=== PATIENT | female | born 1935 | race Caucasian/White ===

== ENCOUNTER → 2017-05-30 | Day surgery (SDC) | payer MEDICARE ==
[~2017-05-30] VITALS: Ht 160 cm; Wt 58.2 kg
[~2017-05-30] MED LIST: ACETAMINOPHEN 325 MG TAB PO PRN; ANAS1TAB PO; ASPE10GE TOPICAL; CALC1TAB87 PO; CHLORHEXIDINE GLUCONATE 2 % 1 PACK (2 CLOTHS) TOPICAL PRN; INSULIN HUMAN REGULAR 1,000 UNITS/10 ML VIAL SQ PRN; LACTATED RINGER'S 1000 ML IV PRN; LIDOCAINE HCL 1% PF 30 ML VIAL ONE; LIDOCAINE HCL 2% JELLY 5 ML SYRINGE TOPICAL ONE; LORA1TAB12 PO; METOPROLOL TARTRATE 25 MG TAB PO PRN; OMEP20TA PO; POVIDONE IODINE 5% (ANTISEPSIS KIT) 4 APPLICATIONS EACH NARE PRN; PROPARACAINE HCL 0.5% OPHT SOLN 15 ML BTL RIGHT EYE ONE; SODIUM CHLORID 0.9% 500 ML IV PRN; TOBRAMYCIN/DEXAMETHASONE OPTH OINT 3.5 GM TUBE ONE
[2017-05-30] MEDS: FLURBIPROFEN 0.03% OPHT SOLN 2.5 ML BTL RIGHT EYE SCH ×4 (07:35→07:50)
[2017-05-30] MEDS: PHENYLEPHRINE HCL 10% OPTH SOLN 5 ML BTL RIGHT EYE SCH ×4 (07:35→07:50)
[2017-05-30] MEDS: CYCLOPENTOLATE HCL 1% OPHT SOLN 2 ML BTL RIGHT EYE SCH ×4 (07:35→07:50)
[2017-05-30] MEDS: TROPICAMIDE 1% OPHT SOLN 15 ML BTL RIGHT EYE SCH ×4 (07:35→07:50)
[2017-05-30 09:30] VITALS: BP 158/73; PULSE 74; RESP 14; TEMP 97; O2SAT 95
--- NOTE | 2017-05-30 12:27 | MP ---
cc: BOLIVAR MCDANIEL M.D. [facility] NUMBER: [id number] DATE OF SURGERY: 05/30/2017 PREOPERATIVE DIAGNOSIS: Visually significant cataract right eye. POSTOPERATIVE DIAGNOSIS: Visually significant cataract right eye. OPERATION: Phacoemulsification with posterior chamber lens implantation, right eye. SURGEON: Bolivar Mcdaniel MD ANESTHESIA: Topical with MAC. COMPLICATIONS: None. PROCEDURE: After informed consent was obtained, the patient was brought into the operative suite and placed on appropriate monitors by the Anesthesia Service. The patient had been given dilating drops and topical lidocaine gel in the holding area. The patient's operative eye was then prepped and draped in the usual sterile fashion. A wire lid speculum was placed. Further 2% lidocaine was then dropped on the cornea prior to beginning the procedure. A paracentesis incision was made in the peripheral cornea with a 1 mm axel keratome. The anterior chamber was filled with viscoelastic. The anterior chamber was then entered through a stepped, clear corneal incision using a sharp 3 mm axel keratome. A circular tear capsulorrhexis was then made with a bent needle cystitome. Following hydrodissection of the lens nucleus with balance saline, phaco-emulsification of the nucleus was performed using a modified chopping technique. The remaining cortex was removed with irrigation/aspiration. The prior two procedures were both performed using the handpieces of the [employer] phaco unit. The capsular bag was then filled with viscoelastic. The intraocular lens was then injected into the capsular bag and positioned. The type of intraocular lens and its power can be found elsewhere in this chart. The remaining viscoelastic was then removed from the anterior chamber with the IA handpiece. The anterior chamber was reformed with balanced saline. The wound was then closed securely with stromal hydration. It was found to be watertight to an intraocular pressure of at least 30 mmHg by palpation. A small amount of balanced salt solution was then removed through the paracentesis site and the intraocular pressure at the end of the case was approximately 20 by palpation. All drapes were then removed. TobraDex ointment was then placed in the eye, which was closed beneath a semi-pressure patch dressing. The patient tolerated this procedure well and left the operating room awake and alert. The patient is to follow-up in my office in the morning. ADDENDUM: After the clear corneal incisions were sealed watertight, a 6 mm limbal relaxing incision was made with a 600 micron axel blade, centered around the superior 60 degree meridian. MD Tyler Boswell /9:10 AM /12:21 PM
== END | disposition home or self-care (01) ==
LOC: PHSDC 06:46
PROVIDERS: ATTEND Optometrist Occupational Vision
DX: H25.11 Age-related nuclear cataract, right eye (principal)
CPT/HCPCS: 00142; 66984; J7040; V2632